=== PATIENT | male | born 1985 | race Caucasian/White ===

== ENCOUNTER 2017-04-16 19:52 | Emergency (ER) | payer OTHER ==
[~2017-04-16] VITALS: Ht 175.3 cm; Wt 76.3 kg
[2017-04-16 19:55] VITALS: BP 118/76
== END 2017-04-16 21:46 | disposition home or self-care (01) ==
LOC: ED 21:05
DX: S63.622A Sprain of interphalangeal joint of left thumb, initial encounter (principal); Z87.891 Personal history of nicotine dependence; X58.XXXA Exposure to other specified factors, initial encounter; Y93.67 Activity, basketball; Y92.328 Other athletic field as the place of occurrence of the external cause; Y99.8 Other external cause status
CPT/HCPCS: 29125; 99284